=== PATIENT | male | born 1990 | race Caucasian/White ===

== ENCOUNTER 2018-02-22 16:11 | Outpatient (CLI) | payer OTHER ==
[2018-02-22] MEDS ORDERED: GADOBUTROL 10 MMOL/10 ML VIAL ONE (16:40)
[2018-02-22] MEDS ORDERED: GADOBUTROL 10 MMOL/10 ML VIAL IVP ONE (16:44)
--- NOTE | 2018-02-28 09:03 | MRI Report ---
Procedure Date: 02/22/2018 Accession Number: [id number] / [id number] Procedure: MRI - Shoulder LT W/WO CPT Code: FULL RESULT: EXAM: LEFT SHOULDER MRI WITHOUT CONTRAST EXAM DATE: 02/22/2018 05:24 PM. CLINICAL HISTORY: PAIN IN LEFT SHOULDER. COMPARISON: None. TECHNIQUE: Multiplanar, multisequence T1-weighted and fluid-sensitive sequences of the shoulder without contrast. Other: None. FINDINGS: Acromioclavicular Region: The acromion is type II. The acromioclavicular joint is unremarkable. The coracoacromial and coracoclavicular ligaments are intact. Small fluid collection subacromial subdeltoid bursa. Glenohumeral Region: No subluxation. No effusion or loose bodies. The articular cartilage is unremarkable. The glenohumeral ligaments and joint capsule are unremarkable. Bone Marrow: No fracture, marrow edema or bone lesions. Labrum: Probable nondisplaced tear anterior superior labrum with small para labral cyst (image 20 series 401). No definite superior labral tear. Musculature/Rotator Cuff: The subscapularis, supraspinatus, infraspinatus, and teres minor tendons are intact. No edema or fatty atrophy. Biceps Tendon: The long head of the biceps tendon and biceps rod are intact. Other: The subcutaneous tissues are unremarkable. IMPRESSION: 1. Negative for rotator cuff tear. 2. Probable anterior superior nondisplaced labrum tear. Labrum tear may be confirmed with MR arthrogram if clinically warranted. [facility] MUSCULOSKELETAL RADIOLOGY SECTION
== END 2018-02-22 16:12 | disposition home or self-care (01) ==
LOC: DI 16:11
PROVIDERS: ATTEND Family Medicine
DX: M25.512 Pain in left shoulder (principal)
CPT/HCPCS: 73223; A9585

== ENCOUNTER 2019-07-30 07:02 | Emergency (ER) | payer OTHER ==
--- NOTE | 2019-07-30 07:29 | ED Physician Documentation ---
PD HPI HEENT - Stated complaint Stated Complaint: POST OP COMPLICATION - Chief complaint Chief Complaint: Heent - History obtained from History obtained from: Patient, Family - History of Present Illness Timing - onset: Today Timing - duration: Minutes Timing - details: Abrupt onset, Now resolved Location: Throat Associated symptoms: Cough. No: Fever, Congestion, Rhinorrhea Similar symptoms before: Has not had sx before Recently seen: Surgery - Additional information Additional information: 29-year-old male had his tonsils out by [facility] [address] Felipe[address] He states that postoperatively things went well he had some pain associated with this and this morning he had a hard cough and developed bright red blood in his phlegm. He has come directly to the hospital and now he finds his symptoms are resolved. Review of Systems Constitutional: reports: Weight Loss (15lbs). denies: Fever Eyes: denies: Decreased vision Ears: denies: Ear pain Nose: denies: Rhinorrhea / runny nose, Congestion Throat: reports: Sore throat Respiratory: reports: Cough GI: denies: Vomiting PD PAST MEDICAL HISTORY - Allergies Allergies/Adverse Reactions: Allergies Allergy/AdvReac Type Severity Reaction Status Date / Time No Known Drug Allergies Allergy Verified 07/30/19 07:09 PD ED PE NORMAL - Vitals Vital signs reviewed: Yes (tachy and hypertensive) - General General: Alert and oriented X 3, No acute distress, Well developed/nourished - HEENT HEENT: Atraumatic, PERRL, EOMI, Other (visual inspection of the posterior pharynx reveals no current bleeding and no evidence of recent bleeding. The cramer rgical site appears to be healing well. ) - Neck Neck: Supple, no meningeal sign, No bony TTP - Respiratory Respiratory: No respiratory distress - Derm Derm: Normal color, Warm and dry, No rash - Extremities Extremities: No deformity, No edema - Neuro Neuro: Alert and oriented X 3, consulting senior practice director 2-12 intact, No motor deficit, No sensory deficit, Normal speech Eye Opening: Spontaneous Motor: Obeys Commands Verbal: Oriented GCS Score: 15 - Psych Psych: Normal mood, Normal affect Results - Vitals Vitals: Vital Signs - 24 hr 07/30/19 07:06 Temperature 36.4 C L Heart Rate 109 H Respiratory 18 Rate Blood Pressure 143/104 H O2 Saturation 98 Oxygen O2 Source Room air PD MEDICAL DECISION MAKING - ED course Complexity details: considered differential, d/w patient, d/w family ED course: 29-year-old male 9 days postoperatively has developed bleeding from the tonsil bed and this appears to have spontaneously resolved. I have indicated the patient reasons to return to the nearest emergency department including recurrence and persistence of bleeding. Departure - Departure Disposition: 01 Home, Self Care Clinical Impression: Postoperative hemorrhage of tonsil Instructions: ED Tonsillectomy Post Op Bleeding Follow-Up: Pop Felipe MD [Physician No Access] -
[2019-07-30 07:42] VITALS: BP 108/81
== END 2019-07-30 07:42 | disposition home or self-care (01) ==
LOC: ED 07:02
DX: J95.830 Postprocedural hemorrhage of a respiratory system organ or structure following a respiratory system procedure (principal)
CPT/HCPCS: 99282